=== PATIENT | female | born 1970 | race African-American/Black ===

== ENCOUNTER 2019-01-11 16:59 | Emergency (ER) | payer MEDICARE, MEDICAID ==
[~2019-01-11] VITALS: Ht 165.1 cm; Wt 76.2 kg
[2019-01-11] MEDS ORDERED: XANAX0.25 MG ORAL (17:02)
[2019-01-11 17:16] VITALS: BP 132/82
[2019-01-11] MEDS ORDERED: oxyCODONE HCL/Acetaminophen 5/325mg ORAL ONE (17:30)
--- NOTE | 2019-01-11 18:38 | Emergency Room Report ---
History of Present Illness General Chief Complaint: Multiple Trauma/Fall Source: Medical Record (Iftikhar Soto) Present Illness HPI 48-year-old female patient presents the ER brought in by ambulance status post mechanical trip and fall earlier today. Reports that it was mechanical trip and fall. Denies syncope or dizziness. Reports that she hit her head however denies vomiting or vision changes. Denies headache pain currently. Reports that she fell onto her right side, complaining of right james pain, right wrist pain, right shoulder pain. Reports has a history of back pain problems, states that she usually uses a walker to walk. Denies bowel or bladder incontinence. Denies other aggravating or relieving factors. Reports right-hand dominant. (Iftikhar Soto) Allergies: Coded Allergies: DIVALPROEX SODIUM (Verified Allergy, Unknown, 01/11/19) QUETIAPINE (Verified Allergy, Unknown, 01/11/19) VALPROIC ACID (Verified Allergy, Unknown, 01/11/19) Patient History Past Medical History: see triage record Last Menstrual Period: last yr Reviewed Nursing Documentation: PMH: Agreed; PSxH: Agreed (Iftikhar Soto) Nursing Documentation-PMH Past Medical History: No History, Except For History Of Psychiatric Problem: Yes (Iftikhar Soto) Review of Systems All Other Systems: negative except mentioned in HPI (Iftikhar Soto) Physical Exam Vital Signs Date Time Temp Pulse Resp B/P (MAP) Pulse Ox O2 Delivery O2 Flow Rate FiO2 01/11/19 16:57 98.4 85 16 135/85 98 Room Air Sp02 EP Interpretation: reviewed, normal General Appearance: well appearing, no apparent distress, alert, GCS 15, non- toxic Head: normocephalic, atraumatic, other Eyes: bilateral eye normal inspection, bilateral eye PERRL ENT: hearing grossly normal, normal pharynx, no angioedema, normal voice, uvula midline, moist mucus membranes Neck: full range of motion Respiratory: lungs clear, normal breath sounds, no rhonchi, no respiratory distress, no accessory muscle use, no wheezing, speaking full sentences Cardiovascular #1: regular rate, rhythm, no edema Gastrointestinal: non tender, soft, no mass, non-distended, no guarding, no rebound Musculoskeletal: back normal, digits/nails normal, gait/station normal, normal range of motion, pelvis stable, other - NVI no leg length discrepancy, no snuffbox tenderness, tender - Right wrist, right shoulder, right proximal tibia , right lateral hip Neurologic: alert, oriented x3, responsive, auto specialty services manager III-XII nml as tested, motor strength/tone normal, sensory intact, cerebellar normal, normal gait, speech normal Psychiatric: mood/affect normal Skin: no rash (Iftikhar Soto) Medical Decision Making PA Attestation Dr. Martinez is my supervising Physician whom patient management has been discussed with. (Iftikhar Soto) Diagnostic Impression: Primary Impression: Fall Additional Impressions: Head trauma Shoulder sprain Wrist sprain Contusion, hip Pain in james ER Course Pt. presents to the ED s/p fall c/o head injury, hip pain, wrist pain, shoulder pain, lower leg pain. Ddx considered but are not limited to sprain, strain, fracture, contusion, dislocation, ICH, skull fracture. Cranial nerves intact as tested, no focal motor deficits, patient did not lose consciousness however due to head trauma will order CT head to rule out acute intracranial pathology Vital signs: are WNL, pt. is afebrile ER COURSE: X-ray pelvis shows possible fracture, will order CT to rule out. CT hip pelvis negative. CT head negative for acute trauma or disease. Discussed results with patient. Advised follow-up with neurology specialist. X-ray of right shoulder negative for acute disease per the pulmonary reading. X-ray of the right wrist negative for acute disease per the preliminary reading. Due to snuffbox tenderness will place patient in splint. Advised patient on repeat x-ray in 1 week to rule out occult fracture. X-ray of right lower leg negative for acute disease. Patient placed in thumb spica splint checked afterwards by me showing good alignment and neurovascularly intact. Patient instructed on RICE method: rest, ice, compression, elevation. Patient instructed on rest, ice and heat. Patient instructed to be WBAT Contact information for orthopedic urgent care provided, follow-up with urgent care if unable to followup with primary care provider and get referral to orthopedic technician. Followup with primary care provider. Discuss referral to ortho/pain management/ PT as needed. Discuss further imaging with MRI/CT as needed. CURES reviewed. DISCHARGE: At this time pt is stable for d/c to home. Patient is resting comfortably, in no acute distress, nontoxic appearing, talking without difficulty. Patient to take medications as instructed Will provide with patient care instructions and any necessary prescriptions. Care plan and follow-up instructions provided. Patient instructed to follow-up with primary care provider in 3 - 5 days. Patient questions asked and answered. Patient reports understanding and agreement to treatment plan. ER precautions given. Patient instructed to return to ER immediately for any new or worsening of symptoms including but not limited to increasing SOB, persistent fever, chest pain, intractable vomiting. - Please note that this Emergency Department Report was dictated using [employer] man technology software, occasionally this can lead to erroneous entry secondary to interpretation by the dictation equipment. (Iftikhar Soto) Other X-Ray Diagnostic Results Other X-Ray Diagnostic Results #1: X-Ray ordered: Right wrist # of Views/Limited Vs Complete: 3 View Indication: Pain EP Interpretation: Yes PA Xray: Interpretation reviewed, by supervising MD, and agrees with findings. Interpretation: no dislocation, no soft tissue swelling, no fractures Impression: No acute disease PA Scribe Text Calixto Brittany PA-C Other X-Ray Diagnostic Results #2: X-Ray ordered: Right lower leg # of Views/Limited Vs Complete: 3 View Indication: Pain EP Interpretation: Yes PA Xray: Interpretation reviewed, by supervising MD Interpretation: no dislocation, no soft tissue swelling, no fractures Impression: No acute disease PA Scribe Text Calixto Brittany PA-C Other X-Ray Diagnostic Results #3: X-Ray ordered: Right shoulder # of Views/Limited Vs Complete: 3 View Indication: Pain EP Interpretation: Yes PA Xray: Interpretation reviewed, by supervising MD, and agrees with findings. Interpretation: no dislocation, no soft tissue swelling, no fractures Impression: No acute disease PA Scribe Text Calixto Brittany PA-C Other X-Ray Diagnostic Results #4: X-Ray ordered: Right hip # of Views/Limited Vs Complete: 2 View Indication: Pain PA Xray: Interpretation reviewed, and agrees with findings. Interpretation: no dislocation, no soft tissue swelling, no fractures Impression: No acute disease PA Scribe Text Calixto Brittany PA-C Other X-Ray Diagnostic Results #5: X-Ray ordered: right pelvis # of Views/Limited Vs Complete: 1 View Indication: Pain EP Interpretation: Yes PA Xray: Interpretation reviewed, by supervising MD, and agrees with findings. Interpretation: no dislocation, no soft tissue swelling, no fractures Impression: No acute disease PA Scribe Text Calixto Soto PA-C (Iftikhar Soto) Other X-Ray Diagnostic Results #1: Electronically Signed by: PA xray documentation reviewed by me and is accurate, Billy Martinez MD. Other X-Ray Diagnostic Results #2: Electronically Signed by: PA xray documentation reviewed by me and is accurate, Billy Martinez MD. Other X-Ray Diagnostic Results #3: Electronically Signed by: PA xray documentation reviewed by me and is accurate, Billy Martinez MD. Other X-Ray Diagnostic Results #4: Electronically Signed by: PA xray documentation reviewed by me and is accurate, Billy Martinez MD. Other X-Ray Diagnostic Results #5: Electronically Signed by: PA xray documentation reviewed by me and is accurate, Billy Mratinez MD. (Billy Martinez MD) CT/MRI/US Diagnostic Results CT/MRI/US Diagnostic Results #1: Imaging Test Ordered: CT pelvis Impression Normal CT/MRI/US Diagnostic Results #2: Imaging Test Ordered: CT head Impression CT head shows mild patchy low attenuation deep/PVWM presumably chronic microvascular disease. Cystic foci bilateral basal ganglia may be old lacunar infarcts. Otherwise negative. No acute bleed, edema or mass-effect. (Iftikhar Soto.Lorelei) Last Vital Signs Date Time Temp Pulse Resp B/P (MAP) Pulse Ox O2 Delivery O2 Flow Rate FiO2 01/11/19 17:16 82 18 Room Air 01/11/19 17:16 98.2 132/82 99 Status: improved (Iftikhar Soto.Lorelei) Disposition: HOME, SELF-CARE Condition: Stable Scripts Ibuprofen* (MOTRIN*) 600 Mg Tablet 600 MG ORAL Q8H PRN for For Pain, #30 TAB 0 Refills Prov: Iftikhar Soto 01/11/19 Hydrocodone Bit/Acetaminophen 5-325* (NORCO 5-325*) 1 Each Tablet 1 TAB ORAL Q6H PRN for For Pain, #10 TAB 0 Refills Prov: Iftikhar Soto 01/11/19 Patient Instructions: Contusion, [id number], Fall Prevention in the Home, [id number], Head Injury, Adult, [id number], Hip Pain, Shoulder Pain, Easy-to -Read, Wrist Pain, [id number], Wrist Sprain Additional Instructions: Patient instructed to follow up with primary care provider and discuss further referral to orthopedics/physical therapy/pain management as needed. If unable to followup with PCP, followup with orthopedic urgent care in 5-7 days , call to schedule appointment. Discussed need for repeat imaging in 1 week of right wrist. Patient instructed on RICE method: rest, ice, compression, elevation. Patient instructed to WBAT. Take medications as directed. Patient questions asked and answered. ER precautions given, patient instructed to return to ER immediately for any new or worsening of symptoms. [facility] [address] [facility] [address] [facility], [id number] [email or web address] Follow-up with neurologist to discuss CT head results. CT head shows mild patchy low attenuation deep/PVWM presumably chronic microvascular disease. Cystic foci bilateral basal ganglia may be old lacunar infarcts. Otherwise negative. No acute bleed, edema or mass-effect. Follow up with primary care physician in 1 - 2 days. If you experience loss of consciousness, vision loss or intractable vomiting, return to ED immediately. Avoid screen time. Drink plenty of fluids. Avoid alcohol/drug use, rest. Iftikhar Soto Jan 11, 2019 18:38 Billy Martinez MD Jan 13, 2019 02:45
[2019-01-11] MEDS ORDERED: IBUPROFEN600 MG ORAL (21:00)
[2019-01-11] MEDS ORDERED: NORCO 5-325 TA1 EACH ORAL (21:00)
[2019-01-11 21:32] VITALS: BP 128/80
--- NOTE | 2019-01-12 08:15 | Diagnostic Imaging Report ---
Indications: Head pain, status post fall Technique: Spiral acquisitions obtained through the brain. Angled axial and coronal 5 x 5 mm slices were reconstructed. Total dose length product 1411.27 mGycm. CTDI vol(s) 70.38 mGy. Dose reduction achieved using automated exposure control Comparison: None. Findings: No acute intracranial hemorrhage or edema, mass effect, nor midline shift. Normal-sized ventricles and extra axial CSF spaces. Low-attenuation foci in the bilateral basal ganglia most likely reflect prominent perivascular spaces although could represent old lacunar infarcts there is minimal periventricular deep white matter low-attenuation. Intact calvarium. Visualized orbits and sinuses are unremarkable. The mastoids are clear Impression: Negative for acute intracranial bleed or mass effect Bilateral basal ganglia old lacunar infarct versus prominent perivascular spaces Minimal periventricular deep white matter chronic microvascular ischemic change This agrees with the preliminary interpretation provided overnight by Dr. Smith The CT scanner at [facility] is accredited by the [employer] and the scans are performed using protocols designed to limit radiation exposure to as low as reasonably achievable to attain images of sufficient resolution adequate for diagnostic evaluation.
--- NOTE | 2019-01-12 08:23 | Diagnostic Imaging Report ---
Indication: Hip and pelvic pain, status post fall Technique: Noncontrast spiral acquisitions obtained through the pelvis. Multiplanar reconstructions generated. Total dose length product 333.59 mGycm. CTDIvol(s) 12.51 mGy. Dose reduction achieved using automated exposure control Comparison: none Findings: No acute fractures. No dislocations. The joint spaces are preserved. No evidence of significant soft tissue contusion. Included soft tissues demonstrate an enlarged uterus, with a possible mass coming off of the lower fundus on the left. Impression: Negative for acute bony trauma Possible fibroid uterus This agrees with the preliminary interpretation provided overnight by Dr. Smith The CT scanner at [facility] is accredited by the [employer] and the scans are performed using protocols designed to limit radiation exposure to as low as reasonably achievable to attain images of sufficient resolution adequate for diagnostic evaluation.
--- NOTE | 2019-01-12 10:07 | Diagnostic Imaging Report ---
Indication: Pelvic pain, status post fall Technique: One view of the pelvis Comparison: none Findings: No acute fractures. No dislocations. The joint spaces are preserved Impression: Negative
--- NOTE | 2019-01-12 10:08 | Diagnostic Imaging Report ---
Indication: Right hip pain, status post fall Technique: 2 views of the right hip Comparison: none Findings: No acute fractures. No dislocations. Joint spaces are preserved Impression: Negative
--- NOTE | 2019-01-12 10:10 | Diagnostic Imaging Report ---
Indication: Pain, status post fall Technique: 2 views of the right tibia and fibula Comparison: none Findings: No acute fractures. No dislocations. The joint spaces are preserved. No radiopaque foreign body demonstrated. There is a small calcaneal spur Impression: No acute process
--- NOTE | 2019-01-12 10:11 | Diagnostic Imaging Report ---
Clinical Indication:Right wrist pain, status post fall Technique: 3 views of the right wrist Comparison: None Findings: No acute fractures. No dislocations. The joint spaces are preserved. No radiopaque foreign body Impression: Negative
--- NOTE | 2019-01-12 17:26 | Diagnostic Imaging Report ---
Indication: Pain, status post fall Technique: 2 views of the right shoulder Comparison: none Findings: Exam is limited, due to the availability of only 2 views. No acute fractures. No dislocations. The joint spaces are preserved Impression: Negative
== END 2019-01-11 21:15 | disposition home or self-care (01) ==
LOC: EDBD 16:59 → EMR 17:20
DX: S63.501A Unspecified sprain of right wrist, initial encounter (principal); S43.401A Unspecified sprain of right shoulder joint, initial encounter; S09.90XA Unspecified injury of head, initial encounter; S70.01XA Contusion of right hip, initial encounter; M79.661 Pain in right lower leg; W01.10XA Fall on same level from slipping, tripping and stumbling with subsequent striking against unspecified object, initial encounter; Y93.9 Activity, unspecified; Y92.9 Unspecified place or not applicable; Z88.8 Allergy status to other drugs, medicaments and biological substances
CPT/HCPCS: 29130; 70450; 72170; 72192; 99284

== ENCOUNTER 2019-05-26 21:39 | Emergency (ER) | payer MEDICARE, MEDICAID ==
[~2019-05-26] VITALS: Ht 162.6 cm; Wt 77.1 kg
[~2019-05-26 21:39] MED LIST: IBUPROFEN600 MG ORAL; NORCO 5-325 TA1 EACH ORAL; XANAX0.25 MG ORAL
[2019-05-26 21:40] VITALS: BP 163/88
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
[2019-05-26] MEDS ORDERED: HYDROCODON-ACE1 EA15 ORAL (21:59)
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
--- NOTE | 2019-05-26 22:06 | NUR ---
ER Nurse Note: Pt called sister for a ride; medically cleared for discharge. All orders given per ERMD orders. Will continue to monitor.
[2019-05-26 22:35] VITALS: BP 163/88
--- NOTE | 2019-05-26 22:35 | NUR ---
ER Nurse Note: Pt seen, treated, medically cleared for discharge by ERMD. Discharge instuctions and prescriptions given with repeat verbalization by pt. Emphasized to follow up with primay care provider; take whole course of medication. Explained each medication. All orders completed per ERMD orders. Pt a&ox4, VSS, no signs of distress. ID band removed. All questions answered per pt's questions. Pt left with all belongings, left with own transportation, wtih sister.
== END 2019-05-26 22:35 | disposition home or self-care (01) ==
LOC: EDBD 21:39 → EMR 22:00
DX: M54.5 Low back pain (principal); G89.29 Other chronic pain; Z88.8 Allergy status to other drugs, medicaments and biological substances; F41.9 Anxiety disorder, unspecified; G40.909 Epilepsy, unspecified, not intractable, without status epilepticus
CPT/HCPCS: 96372; 99283; J1170